=== PATIENT | female | born 1950 | race Caucasian/White ===

== ENCOUNTER 2019-02-04 14:08 | Emergency (ER) | payer OTHER, BC ==
[2019-02-04 15:11] LABS: Urine Blood 3+ (NEG); Urine Glucose NEGATIVE (NEG); Urine Protein 1+ (NEG); Urine pH 5.5 (5.0-7.0)
[2019-02-04 15:18] LABS: Absolute Lymphocytes (CBC) 0.7 K/uL (0.7-4.9); Basophils % 0.4 % (0-1.3); Hematocrit 38.6 % (36.0-45.0); Lymphocytes % 6.5 % (15.3-44.8); MPV 9.8 fL (7.6-11.3); RBC Red Blood Cell Count 4.23 M/uL (3.86-4.86)
[2019-02-04 15:30] LABS: Albumin 3.5 g/dL (3.4-5.0); Bilirubin Direct 0.2 mg/dL (0-0.2); Bilirubin Total 1.1 mg/dL (0.2-1.0); Potassium 4.1 mmol/L (3.5-5.1); Protein, Total 7.5 g/dL (6.4-8.2)
[2019-02-04 15:47] LABS: Urine Amorphous Sediment 2+ /HPF (NONE SEEN); Urine Bacteria >50 /HPF (<20); Urine Culture Reflex Order REFLEXED; Urine RBC >50 /HPF (NONE SEEN)
--- NOTE | 2019-02-04 16:49 | RAD REPORT ---
EXAM DESCRIPTION: CT - Abdomen Pelvis W Contrast - 02/04/2019 4:14 pm CLINICAL HISTORY: Abdominal pain COMPARISON: none. TECHNIQUE: Computed axial tomography of the abdomen pelvis was obtained. 100 cc Isovue-300 was admin istered intravenously. Oral contrast was not requested which limits evaluation of bowel. All CT scans are performed using dose optimization technique as appropriate and may include automated exposure control or mA/KV adjustment according to patient size. FINDINGS: 18 millimeter hepatic cyst Tiny low-density area within the spleen is nonspecific but probably benign Pancreas and adrenals appear unremarkable Contrast is present within the pyelocaliceal structures bilaterally which makes it difficult to detec t small calculi. No hydronephrosis. Small right renal cyst. There is no evidence of diverticulitis. The right ovary is mildly enlarged. No significant free fluid IMPRESSION: Mild enlargement of the right ovary. If the patient is asymptomatic a followup pelvic ul trasound in a couple months would be recommended for re-evaluation
[2019-02-04 16:50] LABS: Blood Morphology Comment NOT SEEN (NOT SEEN); Platelet Estimate ADEQ; Urine White Blood Cell Casts OK
--- NOTE | 2019-02-04 16:52 | ER ---
Nurse's Notes [facility] Name: Tana Garrido Age: 68 yrs Sex: Female : 1950 Arrival Date: 02/04/2019 Time: 14:09 Bed 20 Private MD: Diagnosis: Urinary tract infection, site not specified Presentation: 02/04 14:12 Presenting complaint: Left flank pain that radiates to LLQ, nausea, and urinary hb frequency since this morning. Transition of care: patient was not received from another setting of care. Onset of symptoms was February 04, 2019. Risk Assessment: Do you want to hurt yourself or someone else? Patient reports no desire to harm self or others. Initial Sepsis Screen: Does the patient meet any 2 criteria? No. Patient's initial sepsis screen is negative. Does the patient have a suspected source of infection? No. Patient's initial sepsis screen is negative. Care prior to arrival: None. 14:12 Method Of Arrival: Ambulatory hb 14:12 Acuity: MELISA 3 hb Historical: - Allergies: 14:13 Sulfa (Sulfonamide Antibiotics); hb - Home Meds: 14:13 levothyroxine 50 mcg tab 1 tab once daily [Active]; hb - PMHx: 14:13 Hypothyroidism; hb - PSHx: 14:13 tubal ; hb 14:14 Ankle - Right; hb - Immunization history:: Adult Immunizations up to date. - Social history:: Smoking status: Patient/guardian denies using tobacco. - Ebola Screening: : No symptoms or risks identified at this time. Screenin:30 Abuse screen: Denies threats or abuse. Nutritional screening: No deficits noted. em Tuberculosis screening: No symptoms or risk factors identified. Fall Risk None identified. Assessment: 14:30 General: Appears in no apparent distress. comfortable, Behavior is calm, cooperative, em Denies fever. Pain: Complains of pain in left lower quadrant Pain currently is 6 out of 10 on a pain scale. Pain began 1 day ago. Neuro: Level of Consciousness is awake, alert, obeys commands, Oriented to person, place, time, situation, Appropriate for age. Cardiovascular: Capillary refill < 3 seconds Patient's skin is warm and dry. Respiratory: Airway is patent Respiratory effort is even, unlabored, Respiratory pattern is regular, symmetrical. GI: Abdomen is flat, Patient currently denies nausea, vomiting. : Reports burning with urination, urinary frequency. Derm: Skin is intact, is healthy with good turgor, Skin is pink, warm \T\ dry. Musculoskeletal: Capillary refill < 3 seconds, Range of motion: intact in all extremities. 14:30 General: The previous assessment is accurate. Call light remains within reach.. ss 15:50 Reassessment: Patient appears in no apparent distress at this time. Patient and/or ss family updated on plan of care and expected duration. Pain level reassessed. Patient is alert, oriented x 3, equal unlabored respirations, skin warm/dry/pink. wheeled to CT via wheelchair Patient denies pain at this time. Patient states feeling better. Patient states symptoms have improved. 17:03 Reassessment: Patient appears in no apparent distress at this time. Patient and/or em family updated on plan of care and expected duration. Pain level reassessed. Patient is alert, oriented x 3, equal unlabored respirations, skin warm/dry/pink. Patient denies pain at this time. Vital Signs: 14:13 BP 147 / 61; Pulse 69; Resp 16; Temp 98.3; Pulse Ox 100% on R/A; Weight 97.52 kg; hb Height 5 ft. 4 in. (162.56 cm); Pain 6/10; 16:29 BP 138 / 67; Pulse 76; Resp 18; Temp 98.4(O); Pulse Ox 100% on R/A; Pain 0/10; em 14:13 Body Mass Index 36.90 (97.52 kg, 162.56 cm) hb ED Course: 14:09 Patient arrived in ED. as 14:13 Triage completed. hb 14:14 Arm band placed on. hb 14:15 Quang Peña LVN is Primary Nurse. em 14:22 Zelda Ryan FNP is PHCP. nh 14:22 Fransisco Saravia MD is Attending Physician. nh 14:30 Patient has correct armband on for positive identification. Placed in gown. Bed in low em position. Call light in reach. Side rails up X2. 15:05 Initial lab(s) drawn, by me, sent to lab. Urine collected: clean catch specimen, em cloudy. Inserted saline lock: 22 gauge in right antecubital area, using aseptic technique. Blood collected. 16:14 CT Abd/Pelvis - IV Contrast Only In Process Unspecified. EDMS 16:15 CT completed. Patient tolerated procedure well. Patient moved to CT via stretcher. Patient moved back from CT. 17:04 No provider procedures requiring assistance completed. IV discontinued, intact, em bleeding controlled, No redness/swelling at site. Pressure dressing applied. Administered Medications: No medications were administered Outcome: 16:52 Discharge ordered by MD. mt 17:04 Discharged to home ambulatory, with friend. em 17:04 Condition: good 17:04 Discharge instructions given to patient, Instructed on discharge instructions, follow up and referral plans. medication usage, Demonstrated understanding of instructions, follow-up care, medications, Prescriptions given X 1. 17:04 Patient left the ED. em Signatures: Dispatcher [employer] EDMS Zelda Ryan, ANODE CREW SUPERVISOR ANODE CREW SUPERVISOR mt Kj Chen Quang Peña, DIESEL LUBE TECH DIESEL LUBE TECH em Emilia Chang Shelby, BRENNA CEJA Arielle Riggs, BRENNA RN Corrections: (The following items were deleted from the chart) 17:04 17:04 Patient did not have IV access during this emergency room visit. em em
--- NOTE | 2019-02-04 16:53 | EDPHYS ---
Physician Documentation [facility] Name: Tana Garrido Age: 68 yrs Sex: Female : 1950 Arrival Date: 02/04/2019 Time: 14:09 Bed 20 Private MD: ED Physician Fransisco Saravia HPI: 02/04 15:13 This 68 yrs old Female presents to ER via Ambulatory with complaints of nh Urinary Problem, Flank Pain. 15:13 Onset: The symptoms/episode began/occurred 2 day(s) ago. Associated signs and symptoms: nh Pertinent positives: abdominal pain, dysuria. Modifying factors: The patient symptoms are alleviated by nothing, the patient symptoms are aggravated by nothing. The patient has not experienced similar symptoms in the past. The patient has not recently seen a physician. Patient states this feels similar to previous UTI. Historical: - Allergies: 14:13 Sulfa (Sulfonamide Antibiotics); hb - Home Meds: 14:13 levothyroxine 50 mcg tab 1 tab once daily [Active]; hb - PMHx: 14:13 Hypothyroidism; hb - PSHx: 14:13 tubal ; hb 14:14 Ankle - Right; hb - Immunization history:: Adult Immunizations up to date. - Social history:: Smoking status: Patient/guardian denies using tobacco. - Ebola Screening: : No symptoms or risks identified at this time. ROS: 15:13 Constitutional: Negative for fever, chills, and weight loss, Eyes: Negative for injury, nh pain, redness, and discharge, ENT: Negative for injury, pain, and discharge, Neck: Negative for injury, pain, and swelling, Cardiovascular: Negative for chest pain, palpitations, and edema, Respiratory: Negative for shortness of breath, cough, wheezing, and pleuritic chest pain, Back: Negative for injury and pain, MS/Extremity: Negative for injury and deformity, Skin: Negative for injury, rash, and discoloration, Neuro: Negative for headache, weakness, numbness, tingling, and seizure. 15:13 Abdomen/GI: Positive for abdominal pain, Negative for nausea, vomiting, and diarrhea. 15:13 : Positive for urinary symptoms. Exam: 15:13 Constitutional: This is a well developed, well nourished patient who is awake, alert, nh and in no acute distress. Head/Face: Normocephalic, atraumatic. Eyes: Pupils equal round and reactive to light, extra-ocular motions intact. Lids and lashes normal. Conjunctiva and sclera are non-icteric and not injected. Cornea within normal limits. Periorbital areas with no swelling, redness, or edema. ENT: Nares patent. No nasal discharge, no septal abnormalities noted. Tympanic membranes are normal and external auditory canals are clear. Oropharynx with no redness, swelling, or masses, exudates, or evidence of obstruction, uvula midline. Mucous membranes moist. Neck: Trachea midline, no thyromegaly or masses palpated, and no cervical lymphadenopathy. Supple, full range of motion without nuchal rigidity, or vertebral point tenderness. No Meningismus. Chest/axilla: Normal chest wall appearance and motion. Nontender with no deformity. No lesions are appreciated. Cardiovascular: Regular rate and rhythm with a normal S1 and S2. No gallops, murmurs, or rubs. Normal PMI, no JVD. No pulse deficits. Respiratory: Lungs have equal breath sounds bilaterally, clear to auscultation and percussion. No rales, rhonchi or wheezes noted. No increased work of breathing, no retractions or nasal flaring. Abdomen/GI: Soft, non-tender, with normal bowel sounds. No distension or tympany. No guarding or rebound. No evidence of tenderness throughout. Back: No spinal tenderness. No costovertebral tenderness. Full range of motion. Skin: Warm, dry with normal turgor. Normal color with no rashes, no lesions, and no evidence of cellulitis. MS/ Extremity: Pulses equal, no cyanosis. Neurovascular intact. Full, normal range of motion. Neuro: Awake and alert, GCS 15, oriented to person, place, time, and situation. Cranial nerves II-XII grossly intact. Motor strength 5/5 in all extremities. Sensory grossly intact. Cerebellar exam normal. Normal gait. Vital Signs: 14:13 BP 147 / 61; Pulse 69; Resp 16; Temp 98.3; Pulse Ox 100% on R/A; Weight 97.52 kg; hb Height 5 ft. 4 in. (162.56 cm); Pain 6/10; 16:29 BP 138 / 67; Pulse 76; Resp 18; Temp 98.4(O); Pulse Ox 100% on R/A; Pain 0/10; em 14:13 Body Mass Index 36.90 (97.52 kg, 162.56 cm) hb MDM: 14:22 Patient medically screened. nh 16:51 Data reviewed: vital signs, nurses notes, lab test result(s), radiologic studies, I nh have discussed the patient's presentation/case with the attending Emergency Department Physician; and as a result, I will discharge patient. Counseling: I had a detailed discussion with the patient and/or guardian regarding: the historical points, exam findings, and any diagnostic results supporting the discharge/admit diagnosis, lab results, radiology results, the need for outpatient follow up, to return to the emergency department if symptoms worsen or persist or if there are any questions or concerns that arise at home. 02/04 14:54 Order name: Urine Microscopic Only; Complete Time: 16:08 ss 02/04 14:56 Order name: Basic Metabolic Panel; Complete Time: 15:42 tx 02/04 14:56 Order name: CBC with Diff; Complete Time: 16:51 tx 02/04 14:56 Order name: Creatinine for Radiology; Complete Time: 15:42 tx 02/04 14:56 Order name: Hepatic Function; Complete Time: 15:42 tx 02/04 14:56 Order name: Lipase; Complete Time: 15:42 tx 02/04 14:25 Order name: Urine Dipstick-Ancillary (obtain specimen); Complete Time: 14:54 tx 02/04 14:56 Order name: IV Saline Lock; Complete Time: 15:10 tx 02/04 14:56 Order name: Labs collected and sent; Complete Time: 15:10 tx 02/04 14:56 Order name: CT Abd/Pelvis - IV Contrast Only; Complete Time: 16:51 tx 02/04 14:57 Order name: Urine Dipstick--Ancillary (enter results); Complete Time: 15:42 eb 02/04 15:28 Order name: CBC Smear Scan; Complete Time: 16:51 EDMS 02/04 15:48 Order name: Urine Culture EDMS Administered Medications: No medications were administered Disposition: 17:59 Co-signature as Attending Physician, Fransisco Saravia MD. rn Disposition: 02/04/19 16:52 Discharged to Home. Impression: Urinary tract infection, site not specified. - Condition is Stable. - Discharge Instructions: Urinary Tract Infection, Adult. - Prescriptions for Pyridium 200 mg Oral Tablet - take 1 tablet by ORAL route every 8 hours for 3 days; 9 tablet. Macrobid 100 mg Oral Capsule - take 1 capsule by ORAL route every 12 hours for 7 days; 14 capsule. - Medication Reconciliation Form, Thank You Letter, Antibiotic Education, Prescription Opioid Use form. - Follow up: Private Physician; When: 5 - 6 days; Reason: Recheck today's complaints. - Problem is new. - Symptoms are unchanged. Signatures: Dispatcher [employer] EDMS Zelda Ryan, DRUG AND ALCOHOL COUNSELOR DRUG AND ALCOHOL COUNSELOR tx Quang Peña, MUSHROOM FARMER MUSHROOM FARMER em Fransisco Saravia MD MD rn Baxter, Heather, RN RN Corrections: (The following items were deleted from the chart) 17:04 16:52 02/04/2019 16:52 Discharged to Home. Impression: Urinary tract infection, site em not specified. Condition is Stable. Forms are Medication Reconciliation Form, Thank You Letter, Antibiotic Education, Prescription Opioid Use. Follow up: Private Physician; When: 5 - 6 days; Reason: Recheck today's complaints. Problem is new. Symptoms are unchanged. tx
[2019-02-04 18:25] VITALS: O2SAT 100
[2019-02-04 18:26] VITALS: BP 138/67; TEMP 98.4
== END 2019-02-04 17:04 | disposition home or self-care (01) ==
LOC: ER 14:08
DX: N39.0 Urinary tract infection, site not specified (principal); E03.9 Hypothyroidism, unspecified; Z88.2 Allergy status to sulfonamides
CPT/HCPCS: 87088; 85025; 87086; 80048; 36415; 80076; 83690; 74177; 99284; Q9967; 81003; 81015

== ENCOUNTER 2019-02-05 12:54 | Emergency (ER) | payer OTHER, BC ==
[2019-02-05 14:39] LABS: Absolute Lymphocytes (CBC) 0.5 K/uL (0.7-4.9); Basophils % 0.4 % (0-1.3); Hematocrit 37.1 % (36.0-45.0); Lymphocytes % 3.6 % (15.3-44.8); RBC Red Blood Cell Count 4.09 M/uL (3.86-4.86)
[2019-02-05 14:51] LABS: Potassium 4.1 mmol/L (3.5-5.1)
[2019-02-05] MEDS ORDERED: NA CHLORIDE 0.9% 100 ML IV ONE (15:00)
[2019-02-05] MEDS ORDERED: CEFTRIAXONE/SWI 1gm 1 GM/10 ML SYR ONE (15:01)
--- NOTE | 2019-02-05 15:01 | EDPHYS ---
Physician Documentation [facility] Name: Tana Garrido Age: 68 yrs Sex: Female : 1950 Arrival Date: 02/05/2019 Time: 12:56 Bed 5 Private MD: Myke Brooks ED Physician Mynor Garnica HPI: 02/05 15:02 This 68 yrs old Female presents to ER via Ambulatory with complaints of flank ps1 pain. 15:02 Patient was seen and evaluated yesterday for flank pain. Diagnosed with UTI and sent ps1 home with Macrobid and Pyridium. Patient states that she had similar complaints today as yesterday. Did not take any medication for pain because she did not know what she could take. Pain is intermittent and fluctuating. No fever. . Historical: - Allergies: 13:09 Sulfa (Sulfonamide Antibiotics); aj1 - Home Meds: 13:09 levothyroxine 50 mcg tab 1 tab once daily [Active]; aj1 - PMHx: 13:09 Hypothyroidism; aj1 - Immunization history:: Flu vaccine is up to date. - Social history:: Smoking status: Patient/guardian denies using tobacco. - Ebola Screening: : Patient denies travel to an Ebola-affected area in the 21 days before illness onset. ROS: 15:02 Positive for flank pain, bladder spasm. ps1 15:02 Constitutional: Negative for fever, chills, and weight loss, Eyes: Negative for injury, pain, redness, and discharge. 15:02 Cardiovascular: Negative for chest pain, palpitations, and edema, Respiratory: Negative for shortness of breath, cough, wheezing, and pleuritic chest pain, Abdomen/GI: Negative for abdominal pain, nausea, vomiting, diarrhea, and constipation. Exam: 15:02 Constitutional: This is a well developed, well nourished patient who is awake, alert, ps1 and in no acute distress. Head/Face: Normocephalic, atraumatic. Chest/axilla: Normal chest wall appearance and motion. Nontender with no deformity. No lesions are appreciated. Cardiovascular: Regular rate and rhythm. No gallops, murmurs, or rubs. Normal PMI, no JVD. No pulse deficits. Respiratory: Lungs have equal breath sounds bilaterally, clear to auscultation and percussion. No rales, rhonchi or wheezes noted. No increased work of breathing, no retractions or nasal flaring. Abdomen/GI: Soft, non-tender, with normal bowel sounds. No distension or tympany. No guarding or rebound. No evidence of tenderness throughout. Back: No spinal tenderness. No costovertebral tenderness. Full range of motion. Skin: Warm, dry with normal turgor. Normal color with no rashes, no lesions, and no evidence of cellulitis. Neuro: Awake and alert, GCS 15, oriented to person, place, time, and situation. Cranial nerves II-XII grossly intact. Sensory grossly intact. Vital Signs: 13:09 BP 130 / 76; Pulse 81; Resp 18; Temp 97.6; Pulse Ox 99% on R/A; Weight 99.79 kg (R); aj1 Height 5 ft. 4 in. (162.56 cm) (R); 14:00 BP 133 / 72; Pulse 76; Resp 16; Pulse Ox 100% ; bp 15:00 BP 134 / 70; Pulse 81; Resp 16; Pulse Ox 100% ; bp 15:48 BP 132 / 73; Pulse 71; Resp 17 S; Pulse Ox 100% on R/A; ca1 13:09 Body Mass Index 37.76 (99.79 kg, 162.56 cm) aj1 MDM: 13:45 Patient medically screened. ps1 15:06 Data reviewed: vital signs, nurses notes, lab test result(s), and as a result, I will ps1 discharge patient, administer antibiotics Rocephin. Counseling: I had a detailed discussion with the patient and/or guardian regarding: the historical points, exam findings, and any diagnostic results supporting the discharge/admit diagnosis, lab results, to return to the emergency department if symptoms worsen or persist or if there are any questions or concerns that arise at home. 02/05 13:44 Order name: CBC with Diff; Complete Time: 15:39 ps1 02/05 13:44 Order name: BMP; Complete Time: 14:53 ps1 02/05 14:41 Order name: CBC Smear Scan; Complete Time: 15:39 EDMS Administered Medications: 15:05 Drug: Rocephin 1 grams Route: IV; Rate: bolus; Site: right antecubital; bp 15:19 Drug: Oxybutynin 5 mg Route: PO; bp Disposition: 02/05/19 15:00 Discharged to Home. Impression: Acute cystitis, Leukocytosis. - Condition is Stable. - Discharge Instructions: Pyelonephritis, Adult. - Prescriptions for oxybutynin chloride 5 mg Oral tablet extended release 24hr - take 1 tablet by ORAL route once daily; 3 tablet. Cipro 500 mg Oral Tablet - take 1 tablet by ORAL route every 12 hours for 10 days; 20 tablet. - Medication Reconciliation Form, Thank You Letter, Antibiotic Education, Prescription Opioid Use form. - Follow up: Myke Brooks DO; When: As needed; Reason: Recheck today's complaints, Continuance of care, Re-evaluation by your physician. Follow up: Emergency Department; When: As needed; Reason: Fever > 102 F, Worsening of condition. - Problem is new. - Symptoms are unchanged. Signatures: Dispatcher [employer] EDMS Brionna Delarosa RN RN aj1 Ian Mejias RN RN bp Mynor Garnica MD MD ps1 Lily, BRENNA Hinds RN ca1 Corrections: (The following items were deleted from the chart) 15:49 15:00 02/05/2019 15:00 Discharged to Home. Impression: Acute cystitis; Leukocytosis. ca1 Condition is Stable. Forms are Medication Reconciliation Form, Thank You Letter, Antibiotic Education, Prescription Opioid Use. Follow up: Myke Brooks; When: As needed; Reason: Recheck today's complaints, Continuance of care, Re-evaluation by your physician. Follow up: Emergency Department; When: As needed; Reason: Fever > 102 F, Worsening of condition. Problem is new. Symptoms are unchanged. ps1
--- NOTE | 2019-02-05 15:01 | ER ---
Nurse's Notes [facility] Name: Tana Garrido Age: 68 yrs Sex: Female : 1950 Arrival Date: 02/05/2019 Time: 12:56 Bed 5 Private MD: Myke Brooks Diagnosis: Acute cystitis;Leukocytosis Presentation: 02/05 13:07 Presenting complaint: Patient states: "I was here last night for the same thing. They aj1 did blood work and a CT scan and they said I had a UTI but the pain was gone before I left yesterday and now its back" Reports left lower back pain that radiates to the LLQ. Reports nausea. Denies vomiting, diarrhea, fever. Transition of care: patient was not received from another setting of care. Onset of symptoms was February 05, 2019. Risk Assessment: Do you want to hurt yourself or someone else? Patient reports no desire to harm self or others. Initial Sepsis Screen: Does the patient meet any 2 criteria? No. Patient's initial sepsis screen is negative. Does the patient have a suspected source of infection? Yes: Acute abdominal pain. Care prior to arrival: None. 13:07 Method Of Arrival: Ambulatory aj1 13:07 Acuity: MELISA 3 aj1 Triage Assessment: 13:09 General: Appears in no apparent distress. comfortable, Behavior is calm, cooperative, aj1 appropriate for age. Pain: Pain currently is 6 out of 10 on a pain scale. Neuro: Level of Consciousness is awake, alert, obeys commands. Cardiovascular: Patient's skin is warm and dry. Respiratory: Airway is patent Respiratory effort is even, unlabored, Respiratory pattern is regular, symmetrical. GI: Reports nausea. Historical: - Allergies: 13:09 Sulfa (Sulfonamide Antibiotics); aj1 - Home Meds: 13:09 levothyroxine 50 mcg tab 1 tab once daily [Active]; aj1 - PMHx: 13:09 Hypothyroidism; aj1 - Immunization history:: Flu vaccine is up to date. - Social history:: Smoking status: Patient/guardian denies using tobacco. - Ebola Screening: : Patient denies travel to an Ebola-affected area in the 21 days before illness onset. Screenin:22 Abuse screen: Denies threats or abuse. Denies injuries from another. Nutritional bp screening: No deficits noted. Tuberculosis screening: No symptoms or risk factors identified. Fall Risk None identified. Assessment: 13:21 General: SEE TRIAGE NOTE. bp 14:30 Reassessment: ALL CURRENT ORDERS COMPLETED, DISPO PENDING. bp 15:20 Reassessment: D/C ON HOLD FOR ABX INFUSION. bp 15:47 Reassessment: Patient appears in no apparent distress at this time. Patient is alert, ca1 oriented x 3, equal unlabored respirations, skin warm/dry/pink. 15:49 GI: ca1 15:49 GI: ca1 Vital Signs: 13:09 BP 130 / 76; Pulse 81; Resp 18; Temp 97.6; Pulse Ox 99% on R/A; Weight 99.79 kg (R); aj1 Height 5 ft. 4 in. (162.56 cm) (R); 14:00 BP 133 / 72; Pulse 76; Resp 16; Pulse Ox 100% ; bp 15:00 BP 134 / 70; Pulse 81; Resp 16; Pulse Ox 100% ; bp 15:48 BP 132 / 73; Pulse 71; Resp 17 S; Pulse Ox 100% on R/A; ca1 13:09 Body Mass Index 37.76 (99.79 kg, 162.56 cm) aj1 ED Course: 12:56 Patient arrived in ED. mr 12:56 Myke Brooks DO is Private Physician. mr 13:09 Triage completed. aj1 13:09 Arm band placed on. aj1 13:12 Ian Mejias, RN is Primary Nurse. bp 13:22 Patient has correct armband on for positive identification. Bed in low position. Call bp light in reach. Side rails up X2. 13:28 Mynor Garnica MD is Attending Physician. ps1 14:08 Inserted saline lock: 22 gauge in right antecubital area, using aseptic technique. bp Blood collected. 14:58 Myke Brooks DO is Referral Physician. ps1 15:47 IV discontinued, intact, bleeding controlled, No redness/swelling at site. Pressure ca1 dressing applied. 15:49 No provider procedures requiring assistance completed. ca1 Administered Medications: 15:05 Drug: Rocephin 1 grams Route: IV; Rate: bolus; Site: right antecubital; bp 15:19 Drug: Oxybutynin 5 mg Route: PO; bp Outcome: 15:00 Discharge ordered by . ps1 15:48 Discharged to home ambulatory, with friend. ca1 15:48 Condition: stable 15:48 Discharge instructions given to patient, Instructed on discharge instructions, follow up and referral plans. medication usage, Demonstrated understanding of instructions, follow-up care, medications, Prescriptions given X 2. 15:49 Patient left the ED. ca1 Signatures: Brionna Delarosa RN RN aj1 Digna Lopez Brian, RN RN Mynor Neely MD MD ps1 Lizet Bautista RN RN ca1
[2019-02-05] MEDS ORDERED: OXYBUTYNIN ER 5 MG TAB PO ONE (15:15)
[2019-02-05 15:16] LABS: Platelet Estimate ADEQ; Urine White Blood Cell Casts OK
[2019-02-05 15:17] LABS: Blood Morphology Comment NOT SEEN (NOT SEEN)
[2019-02-05 15:55] VITALS: TEMP 97.6
[2019-02-05 15:57] VITALS: O2SAT 100
[2019-02-05 15:59] VITALS: BP 132/73
== END 2019-02-05 15:49 | disposition home or self-care (01) ==
LOC: ER 12:54
DX: N30.00 Acute cystitis without hematuria (principal); D72.829 Elevated white blood cell count, unspecified; Z88.2 Allergy status to sulfonamides; E03.9 Hypothyroidism, unspecified
CPT/HCPCS: 85025; 80048; 36415; 96374; 99284; J0696